=== PATIENT | female | born 2000 | race Caucasian/White ===

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

== ENCOUNTER 2022-10-21 16:32 | Emergency (ER) | payer OTHER ==
[2022-10-21 17:12] VITALS: BP 128/82; PULSE 114; RESP 20; TEMP 98.8; BMI 25.6
[2022-10-21] MEDS ORDERED: ALBUTEROL SO4 2.5/IPRATROPIUM 0.5 INH SOL 3 ML VIAL.NEB. NEB ONE (18:09)
[2022-10-21] MEDS ORDERED: LORATADINE 10 MG TABLET PO ONE (18:12)
[2022-10-21] MEDS ORDERED: OXYMETAZOLINE 0.05% NASAL SOLUTION 15 ML BOTTLE NS ONE (18:12)
[2022-10-21] MEDS ORDERED: LORATADINE 10 MG TABLET ONE (18:31)
== END 2022-10-21 20:22 | disposition home or self-care (01) ==
LOC: JER 16:32
PROC: 3E0F7GC Introduction of Other Therapeutic Substance into Respiratory Tract, Via Natural or Artificial Opening (ICD-10-PCS; principal; 2022-10-21)
DX: R05.1 Acute cough (principal); R09.81 Nasal congestion
CPT/HCPCS: 0241U-QW; 71046-TC-FY; 99284-25

== ENCOUNTER 2022-11-06 11:39 | Emergency (ER) | payer OTHER ==
[2022-11-06 11:56] VITALS: BP 110/77; PULSE 103; RESP 18; TEMP 98.5; BMI 25.6
== END 2022-11-06 14:01 | disposition home or self-care (01) ==
LOC: JER 11:39
DX: J20.9 Acute bronchitis, unspecified (principal); H10.32 Unspecified acute conjunctivitis, left eye
CPT/HCPCS: 0241U-QW; 99283-25

== ENCOUNTER 2023-04-28 08:45 | Emergency (ER) | payer OTHER ==
[2023-04-28 08:56] VITALS: BP 123/81; PULSE 91; RESP 17; TEMP 98.8; BMI 25.6
[2023-04-28] MEDS ORDERED: ALBUTEROL SO4 2.5/IPRATROPIUM 0.5 INH SOL 3 ML VIAL.NEB. NEB ONE ×2 (10:02→10:13)
[2023-04-28 10:39] LABS: BASO % 0.6 % (0-2.0); HEMATOCRIT 40.9 % (32.4-45.2); HEMOGLOBIN 13.7 GM/dL (10.7-15.3); LYMPH % 23.8 % (8-40); MCH 29.9 pg (25.7-33.7); MCHC 33.4 g/dl (32.0-36.0); MEAN CELL VOLUME 89.5 fl (80-96); MEAN PLT VOLUME 8.5 fl (7.5-11.1); MONO % 8.2 % (3.8-10.2); NEUT % 65.4 % (42.8-82.8); PLATELET COUNT 252 10^3/uL (134-434); RBC 4.57 M/mm3 (3.60-5.2); RDW 14.2 % (11.6-15.6); WHITE BLOOD COUNT 7.6 K/mm3 (4.0-10.0)
[2023-04-28 10:52] LABS: POTASSIUM 4.4 mmol/L (3.5-5.1)
[2023-04-28 10:54] LABS: CALCIUM 9.3 mg/dL (8.5-10.1)
[2023-04-28 10:55] LABS: ALBUMIN 4.2 g/dl (3.4-5.0); BLOOD UREA NITROGEN 9.7 mg/dL (7-18); MAGNESIUM 2.1 mg/dL (1.8-2.4)
[2023-04-28 10:58] LABS: CREATININE 0.8 mg/dL (0.55-1.3)
[2023-04-28 10:59] LABS: TOT PROT 7.3 g/dl (6.4-8.2)
== END 2023-04-28 11:43 | disposition home or self-care (01) ==
LOC: JERFT 08:45
PROC: 3E0F7GC Introduction of Other Therapeutic Substance into Respiratory Tract, Via Natural or Artificial Opening (ICD-10-PCS; principal; 2023-04-28)
DX: R07.89 Other chest pain (principal)
CPT/HCPCS: 36415; 71046-TC-FY; 80053; 83735; 84484; 84703; 85025; 93005; 93010; 99285-25

== ENCOUNTER 2023-05-31 08:29 | Emergency (ER) | payer OTHER ==
[2023-05-31 08:36] VITALS: PULSE 86; RESP 20; TEMP 98.7; BMI 25.6
[2023-05-31] MEDS ORDERED: SODIUM CHLORIDE 0.9% 500 ML INFUS.BAG IV ONE (09:32)
[2023-05-31 10:00] LABS: BASO % 0.7 % (0-2.0); EOS % 2.9 % (0-4.5); HEMATOCRIT 39.6 % (32.4-45.2); HEMOGLOBIN 12.9 GM/dL (10.7-15.3); LYMPH % 21.4 % (8-40); MCH 29.5 pg (25.7-33.7); MCHC 32.5 g/dl (32.0-36.0); MEAN CELL VOLUME 90.5 fl (80-96); MEAN PLT VOLUME 7.8 fl (7.5-11.1); MONO % 7.6 % (3.8-10.2); NEUT % 67.4 % (42.8-82.8); PLATELET COUNT 225 10^3/uL (134-434); RBC 4.37 M/mm3 (3.60-5.2); RDW 14.3 % (11.6-15.6); WHITE BLOOD COUNT 7.6 K/mm3 (4.0-10.0)
[2023-05-31 10:10] LABS: POTASSIUM 4.3 mmol/L (3.5-5.1)
[2023-05-31 10:12] LABS: ALBUMIN 3.8 g/dl (3.4-5.0); CALCIUM 8.8 mg/dL (8.5-10.1)
[2023-05-31 10:13] LABS: BLOOD UREA NITROGEN 15.3 mg/dL (7-18); MAGNESIUM 1.9 mg/dL (1.8-2.4)
[2023-05-31 10:15] LABS: CREATININE 0.8 mg/dL (0.55-1.3)
[2023-05-31 10:16] LABS: BILIRUBIN,TOTAL 0.8 mg/dL (0.2-1); TOT PROT 6.8 g/dl (6.4-8.2)
[2023-05-31 12:27] LABS: PH,URINE 5.5 (5.0-8.0); URINE APPEARANCE CLEAR; URINE BILIRUBIN NEGATIVE (NEGATIVE); URINE COLOR YELLOW; URINE GLUCOSE (UA) NEGATIVE (NEGATIVE); URINE KETONE 1+ (NEGATIVE); URINE LEUK ESTERASE NEGATIVE (NEGATIVE); URINE NITRITE NEGATIVE (NEGATIVE); URINE PROTEIN NEGATIVE (NEGATIVE); URINE UROBILINOGEN 0.2 mg/dL (0.2-1.0)
[2023-05-31 12:45] VITALS: BP 100/60
== END 2023-05-31 12:47 | disposition home or self-care (01) ==
LOC: JER 08:29
DX: G40.909 Epilepsy, unspecified, not intractable, without status epilepticus (principal)
CPT/HCPCS: 36415; 80053; 81003; 83735; 84703; 85025; 93005; 93010; 99284-25

== ENCOUNTER 2023-12-21 18:23 | Emergency (ER) | payer OTHER ==
[2023-12-21 18:28] VITALS: BP 99/71; PULSE 89; RESP 18; BMI 24.1
== END 2023-12-21 19:23 | disposition left against medical advice (07) ==
LOC: JER 18:23
DX: R56.9 Unspecified convulsions (principal)
CPT/HCPCS: 99281-25

== ENCOUNTER 2024-02-10 23:10 | Emergency (ER) | payer OTHER ==
[2024-02-10 23:19] VITALS: BP 116/78; PULSE 110; RESP 20; TEMP 98.5; BMI 25.4
[2024-02-11 01:37] LABS: EPI CELLS 30 /uL (0-25.1); HYALINE CASTS 1 /uL (0-3.1); PH,URINE 6.5 (5.0-8.0); URINE APPEARANCE CLEAR; URINE BACTERIA 62 /uL (0-1359); URINE BILIRUBIN NEGATIVE (NEGATIVE); URINE COLOR YELLOW; URINE GLUCOSE (UA) NEGATIVE (NEGATIVE); URINE KETONE NEGATIVE (NEGATIVE); URINE LEUK ESTERASE NEGATIVE (NEGATIVE); URINE NITRITE NEGATIVE (NEGATIVE); URINE PROTEIN NEGATIVE (NEGATIVE); URINE RBC 11 /uL (0-23.9); URINE WBC 5 /uL (0-25.8)
[2024-02-11 01:55] LABS: HCG,QUALITATIVE URINE Negative
[2024-02-11 02:30] LABS: BASO % 0.8 % (0-2.0); EOS % 1.5 % (0-4.5); HEMATOCRIT 34.5 % (32.4-45.2); HEMOGLOBIN 11.6 GM/dL (10.7-15.3); LYMPH % 21.2 % (8-40); MCH 30.6 pg (25.7-33.7); MCHC 33.6 g/dl (32.0-36.0); MEAN CELL VOLUME 91.2 fl (80-96); MEAN PLT VOLUME 7.1 fl (7.5-11.1); MONO % 15.3 % (3.8-10.2); NEUT % 61.2 % (42.8-82.8); PLATELET COUNT 272 10^3/uL (134-434); RBC 3.78 M/mm3 (3.60-5.2); RDW 13.8 % (11.6-15.6); WHITE BLOOD COUNT 6.7 K/mm3 (4.0-10.0)
[2024-02-11 03:03] LABS: POTASSIUM 3.6 mmol/L (3.5-5.1)
[2024-02-11 03:06] LABS: ALBUMIN 3.8 g/dl (3.4-5.0); BLOOD UREA NITROGEN 9.7 mg/dL (7-18)
[2024-02-11 03:09] LABS: CREATININE 0.8 mg/dL (0.55-1.3)
[2024-02-11 03:11] LABS: BILIRUBIN,TOTAL 0.5 mg/dL (0.2-1); TOT PROT 6.7 g/dl (6.4-8.2)
[2024-02-11] MEDS ORDERED: KETOROLAC TROMETHAMINE 15 MG/ML VIAL ONE (03:38)
[2024-02-11] MEDS: KETOROLAC TROMETHAMINE 15 MG/ML VIAL IVPUSH ONE (03:41)
== END 2024-02-11 05:49 | disposition home or self-care (01) ==
LOC: JER 23:10
PROC: 3E0333Z Introduction of Anti-inflammatory into Peripheral Vein, Percutaneous Approach (ICD-10-PCS; principal; 2024-02-11)
DX: R10.32 Left lower quadrant pain (principal); N83.202 Unspecified ovarian cyst, left side
CPT/HCPCS: 36415; 74177-TC; 80053; 81003; 84703; 85025; 87086; 99285-25; Q9967

== ENCOUNTER 2024-02-28 08:01 | Emergency (ER) | payer OTHER ==
[2024-02-28 08:06] VITALS: BP 110/72; PULSE 83; RESP 20; TEMP 98.6; BMI 24.8
== END 2024-02-28 10:12 | disposition home or self-care (01) ==
LOC: JERFT 08:01
DX: R05.9 Cough, unspecified (principal); R68.89 Other general symptoms and signs; Z20.822 Contact with and (suspected) exposure to COVID-19
CPT/HCPCS: 0241U-QW; 99283-25

== ENCOUNTER 2024-06-15 20:40 | Emergency (ER) | payer OTHER ==
[2024-06-15 20:48] VITALS: BP 107/73; PULSE 95; RESP 18; TEMP 97.7; BMI 25.6
[2024-06-15 21:23] LABS: BASO % 0.6 % (0-2.0); EOS % 2.3 % (0-4.5); HEMATOCRIT 38.2 % (32.4-45.2); HEMOGLOBIN 12.8 GM/dL (10.7-15.3); LYMPH % 24.6 % (8-40); MCH 29.5 pg (25.7-33.7); MCHC 33.5 g/dl (32.0-36.0); MEAN CELL VOLUME 88.1 fl (80-96); MEAN PLT VOLUME 7.2 fl (7.5-11.1); MONO % 8.5 % (3.8-10.2); PLATELET COUNT 276 10^3/uL (134-434); RBC 4.33 M/mm3 (3.60-5.2); RDW 14.4 % (11.6-15.6)
[2024-06-15] MEDS: LACTATED RINGERS SOLUTION 1000 ML INFUS.BAG IV ONE (21:23)
[2024-06-15 21:42] LABS: ALBUMIN 4.3 g/dl (3.4-5.0)
[2024-06-15 21:45] LABS: CREATININE 0.8 mg/dL (0.55-1.3)
[2024-06-15 21:47] LABS: BILIRUBIN,TOTAL 0.4 mg/dL (0.2-1); TOT PROT 6.9 g/dl (6.4-8.2)
== END 2024-06-15 22:50 | disposition home or self-care (01) ==
LOC: JER 20:40
DX: G40.909 Epilepsy, unspecified, not intractable, without status epilepticus (principal)
CPT/HCPCS: 36415; 80053; 84703; 85025; 99283-25